=== PATIENT | male | born 1955 | race Hispanic/Latino ===

== ENCOUNTER → 2024-11-02 | Day surgery (SDC) | payer MEDICARE, OTHER ==
[2024-10-30 13:01] LABS: BASOPHILS % 0.9 % (0.0-1.0); EOSINOPHILS % 4.3 % (0.0-6.0); LYMPHOCYTES % 24.2 % (18.0-39.1); MONOCYTES % 8.0 % (4.4-11.3); NEUTROPHILS % 62.3 % (38.7-80.0); RED CELL DISTRIBUTION WIDTH 14.1 % (11.7-14.4)
[2024-10-30 13:29] LABS: EST GLOMERULAR FILTRATION RATE 71.0 ML/MIN (>=60)
[~2024-11-02] MED LIST: ACETAMINOPHEN 1000 MG/100 ML 100 ML IV ONE; AMBIEN10 MG PO; AMLODIPINE BESYL5 MG PO; ASPIRIN81 MG PO; CRESTOR40 MG PO; FAMOTIDINE 20 MG/2 ML VIAL IV ONE; FENOFIBRATE145 MG PO; FENTANYL CITRATE/PF 100MCG/2 ML INJ ONE; GABAPENTIN300 MG PO; GLIMEPIRIDE2 MG PO; LACTATED RINGER'S 1,000 ML ONE; LIDOCAINE HCL 2% LOCAL INJ 5 ML SDV VIAL INJ ONE; LISINOPRIL-HCT1 EACH PO; METFORMIN HCL500 MG PO; METOPROLOL SUCC50 MG PO; MOMETASONE FURO15 G1 TOP; ONDANSETRON HCL INJ 2MG/ML 2ML 2 MG/ML VIAL ONE; PLAVIX75 MG PO; PROPOFOL IV EMULSION 10 MG/ML 20 ML VIAL ONE; SERTRALINE HCL50 MG PO; SEVOFLURANE INHAL SOLN 250 ML PEN BTL ONE
[2024-11-02 12:10] VITALS: TEMP 97.8
[2024-11-02 14:00] VITALS: BP 137/86; PULSE 50; RESP 18; O2SAT 97
== END | disposition home or self-care (01) ==
LOC: OR 09:11
PROVIDERS: ATTEND Podiatrist Foot & Ankle Surgery
DX: M20.12 Hallux valgus (acquired), left foot (principal); B07.0 Plantar wart; E11.9 Type 2 diabetes mellitus without complications; I25.810 Atherosclerosis of coronary artery bypass graft(s) without angina pectoris; I10 Essential (primary) hypertension; Z01.810 Encounter for preprocedural cardiovascular examination; Z01.812 Encounter for preprocedural laboratory examination; Z01.818 Encounter for other preprocedural examination; Z79.02 Long term (current) use of antithrombotics/antiplatelets; Z79.82 Long term (current) use of aspirin; Z79.84 Long term (current) use of oral hypoglycemic drugs; Z79.899 Other long term (current) drug therapy; Z95.1 Presence of aortocoronary bypass graft
CPT/HCPCS: 11106; 28292; 36415 ×2; 71046; 80048; 82948; 85025; 88305; 93005; J0131; J0690; J1308; J2003; J2405; J2704; J3010; J7121; 88304